=== PATIENT | female | born 1955 | race Two or more races ===

== ENCOUNTER 2023-01-12 22:41 | Emergency (ER) | payer MEDICARE, BC ==
[~2023-01-12] VITALS: Ht 152.4 cm; Wt 77.1 kg
[2023-01-12 23:26] LABS: BASOPHILS # (AUTO) 0.2 K/uL (0.0-0.2); BASOPHILS % (AUTO) 0.9 % (0.0-2.0); EOSINOPHILS # (AUTO) 0.1 K/uL (0.0-0.7); EOSINOPHILS % (AUTO) 0.9 % (0.0-6.0); HEMATOCRIT 43 % (33-45); HEMOGLOBIN 14.2 g/dL (11.5-14.8); LYMPHOCYTES # (AUTO) 1.2 K/uL (0.8-4.8); LYMPHOCYTES % (AUTO) 7.2 % (20.0-44.0); MEAN CORPUSCULAR HEMOGLOBIN 31 PG (26.0-33.0); MEAN CORPUSCULAR HGB CONC 33 g/dl (31.0-36.0); MEAN CORPUSCULAR VOLUME 93 fL (82-100); MONOCYTES # (AUTO) 0.8 K/uL (0.1-1.30); MONOCYTES % (AUTO) 4.7 % (2.0-12.0); NEUTROPHILS # (AUTO) 13.8 K/uL (1.8-8.9); NEUTROPHILS % (AUTO) 86.3 % (43.0-81.0); PLATELET COUNT (AUTO) 287 K/uL (150-450); RED BLOOD CELL COUNT(AUTO) 4.66 MIL/uL (4.0-5.2); RED CELL DISTRIBUTION WIDTH 13.8 % (11.5-15.0); WHITE BLOOD COUNT (AUTO) 16.1 K/uL (4.3-11.0)
[2023-01-12 23:33] LABS: CARBON DIOXIDE 26 mmol/L (21-32); CHLORIDE 100 mmol/L (98-107); CREATININE 0.9 mg/dL (0.6-1.3); GLUCOSE 124 mg/dL (74-106); POTASSIUM 3.6 mmol/L (3.5-5.1); SODIUM SERUM 136 mmol/L (136-145); UREA NITROGEN, BLOOD 17 mg/dL (7-18)
[2023-01-12 23:55] LABS: BAND % (MANUAL) 4 % (0.0-5.0); LYMPHOCYTES % (MANUAL) 6 % (16-48); MONOCYTES % (MANUAL) 3 % (0-11.0); NEUTROPHILS % (MANUAL) 87 (42-76); PLATELET ESTIMATE ADEQUATE
[2023-01-12] MEDS ORDERED: ONDANSETRON HCL/PF 4 MG/2 ML VIAL ONE (23:59)
[2023-01-13] MEDS ORDERED: ASPIRIN 325 MG TABLET PO ONE
[2023-01-13] MEDS ORDERED: ASPIRIN 325 MG TABLET ONE
[2023-01-13] MEDS ORDERED: MORPHINE SULFATE INJ 2 MG/ML DISP.SYRIN IV ONE
[2023-01-13] MEDS ORDERED: MORPHINE SULFATE INJ 2 MG/ML DISP.SYRIN ONE
[2023-01-13] MEDS ORDERED: ONDANSETRON HCL/PF - ER 4 MG/2 ML VIAL IV ONE
[2023-01-13] MEDS ORDERED: IBUP-1955 PO (02:49)
[2023-01-13] MEDS ORDERED: LEVO750T46 PO (02:49)
[2023-01-13] MEDS ORDERED: LIDO30AD10 TP (02:49)
[2023-01-13] MEDS ORDERED: LEVOFLOXACIN (250MG) 250 MG TABLET ONE (02:58)
[2023-01-13] MEDS ORDERED: LEVOFLOXACIN (250MG) 250 MG TABLET PO ONE (03:00)
[2023-01-13 03:04] VITALS: BP 94/63; TEMP 97.9; O2SAT 94
== END 2023-01-13 03:23 | disposition home or self-care (01) ==
LOC: ER 22:44
DX: J18.1 Lobar pneumonia, unspecified organism (principal); M54.6 Pain in thoracic spine; J45.909 Unspecified asthma, uncomplicated; Z88.8 Allergy status to other drugs, medicaments and biological substances
CPT/HCPCS: 99285; 71045; 93005; 85025; 80048; 85378; 36415 ×2; 84484 ×2; 96374; 96375; 85007; J2405; J2270